=== PATIENT | female | born 1975 ===

== ENCOUNTER 2016-08-19 21:41 | Emergency (ER) | payer MEDICAID ==
[~2016-08-19] VITALS: Ht 157.5 cm; Wt 85.5 kg
[2016-08-19 21:47] VITALS: Ht 157.5 cm; Wt 85.5 kg
[2016-08-19] MEDS ORDERED: DIAZEPAM 5 MG TAB PO ONE (23:30)
--- NOTE | 2016-08-20 01:37 | RADRPT ---
PROCEDURE: CT Brain without contrast. CLINICAL INDICATION: Dizziness. History of arachnoid cyst. TECHNIQUE: Serial axial computed tomographic images of the brain was performed on a CT scanner fro m the skull base through the vertex without contrast. Sagittal and coronal reconstruction images wer e produced. Exam CTDlvol = 51 mGy and DLP = 818 mGy-cm. One of the following 3 dose reduction tech niques were used: Automated exposure control; adjustment of the mA and/or kV according to patient si ze; or use of iterative reconstruction technique. COMPARISON: None available FINDINGS: The patient status post left frontal and temporal craniotomy. The ventricles and sulci are normal i n size and configuration. There is no midline shift. There are no focal parenchymal abnormalities. There is no acute stroke. No acute intracranial hemorrhage or abnormal extra-axial fluid collecti on. No fracture identified. Visualized paranasal sinuses are clear. IMPRESSION: 1. No acute intracranial abnormality. 2. Status post left frontal/temporal craniotomy. No evidence for residual or recurrent arachnoid cy st. RPTAT: [facility]K .Pro Mcfarland MD, Date Time Electronically viewed and signed by .Pro Mcfarland MD, on 08/20/2016 01:37 .K/
[2016-08-20] MEDS ORDERED: DIAZ-90 PO (01:40)
[2016-08-20 02:20] VITALS: BP 122/81; PULSE 70; RESP 16; TEMP 98.7
--- NOTE | 2016-08-20 02:40 | ERD ---
ER Documentation Chief Complaint Date/Time DATE: 08/20/16 TIME: 02:36 Chief Complaint dizziness x 2 days HPI This is a 41-year-old female with a history of epilepsy and craniotomy in 2003 for a arachnoid cyst presenting to the emergency department complaining of on and off vertigo for the past couple years. Patient states that she has been having symptoms for the past 2 days, she feels as if the room is spinning and has nausea, she states that it is reproduced with moving her head. She denies any headache. Patient states that she has a neurologist at [facility] but she forgot the doctor's name, she states that she has been given Antivert without any relief. Patient states that she has an appointment to see her neurologist tomorrow. She thinks her last imaging was in April and was normal. Patient denies any blurry vision, vomiting, ROS All systems reviewed and are negative except as per history of present illness. Medications Home Meds Active Scripts Diazepam* (Valium*) 5 Mg Tablet, 5 MG PO Q8 Y for vertigo, #10 TAB Prov:JONN LITTLE PA-C 08/20/16 Allergies Allergies: Coded Allergies: levetiracetam (Verified Allergy, Unknown, SEIZURES, 08/19/16) PMhx/Soc History of Surgery: Yes (L TEMPORAL LOBE REMOVAL ARACHNOID CYST REMOVAL 2003) Anesthesia Reaction: No Hx Neurological Disorder: Yes (EPILEPSY, MIGRAINES) Hx Respiratory Disorders: No Hx Cardiac Disorders: No Hx Psychiatric Problems: Yes (BIPOLAR DISORDER) Hx Miscellaneous Medical Probl: Yes (UTERINE FIBROIDS, HOMELESSNESS, ) Hx Alcohol Use: No Hx Substance Use: Yes (HISTORY OF METH) Hx Tobacco Use: Yes (3-5 CIGS/ DAY) Smoking Status: Current every day smoker Physical Exam Vitals Vital Signs Date Time Temp Pulse Resp B/P Pulse Ox O2 Delivery O2 Flow Rate FiO2 08/20/16 02:20 98.7 70 16 122/81 97 Room Air 08/19/16 21:47 98.2 73 20 135/72 100 Physical Exam GENERAL: well-developed/well-nourished, in no apparent distress, non-toxic appearing HENT: NC/AT, bilateral tympanic membrane is normal with good cone of light, nares patent, oropharynx clear without exudates EYES: Conjunctiva normal, PERRLA, EOMI, no nystagmus noted NECK: Supple, no lymphadenopathy PULM: CTA bilaterally, no rales, rhonchi, or wheezing heard CV: Normal S1S2, RRR, good capillary refill GI: Soft, non-distended, normal bowel sounds, non-tender BACK: No midline tenderness, no masses, No CVAT EXT: No clubbing, cyanosis, or edema NEURO: Alert and orientated to person, place, and time. CN II-IIX intact. Gait and coordination were normal. Hand emt i/85 strength were equal and within normal limits SKIN: Intact, normal turgor PSYCH: Normal mood and mentation, patient denied SI Results 24 hrs Current Medications Medications (Trade) Dose Ordered Sig/Nasima Route PRN Reason Start Time Stop Time Status Last Admin Dose Admin Diazepam (Valium) 10 mg ONCE ONCE PO 08/19/16 23:30 08/20/16 00:19 DC Procedures/MDM This is a 41-year-old female with a history of epilepsy and craniotomy in 2003 for a arachnoid cyst presenting to the emergency department complaining of on and off vertigo for the past couple years. This is likely a positional vertigo due to history. Symptoms were reproduced with movement of head. My other differentials include but not limited to include labyrinthitis, vestibular neuritis, Mnire's disease, acoustic neuroma , otitis media and central causes such as vestibular migraine, brainstem ischemia, and multiple sclerosis. Patient did not have neurological symptoms, headaches, tinnitus or hearing loss. Due to history of CT scan of the head was done and it did not show any evidence of acute pathology. Radiologist stated: 1. No acute intracranial abnormality. 2. Status post left frontal/temporal craniotomy. No evidence for residual or recurrent arachnoid cyst. Patient was sleeping comfortably in the examination room. Patient is going to see her neurologist tomorrow and I have discussed to take her document patients with her. She is hemodynamically stable. I have discussed the pathology of the condition. I have discussed to see a primary care physician for follow-up examination and management. Discussed to return to the ER if condition worsens or not improves as expected. Patient expressed that they agreed and understood this plan. Departure Diagnosis: Primary Impression: Vertigo Condition: Stable Patient Instructions: Vertigo, Unspecified Referrals: your neurologist Additional Instructions: FOLLOW UP WITH YOUR PRIMARY CARE PHYSICIAN TOMORROW.Return to this facility if you are not improving as expected. Take all medicines as directed. Return to this facility if you are not improving as expected. JONN LITTLE PA-C Aug 20, 2016 02:40
== END 2016-08-20 02:26 | disposition home or self-care (01) ==
LOC: FTE 21:41
DX: R42 Dizziness and giddiness (principal); F17.210 Nicotine dependence, cigarettes, uncomplicated
CPT/HCPCS: 70450; Z7502